=== PATIENT | female | born 1975 | race American Indian/Alaskan Native ===

== ENCOUNTER 2019-11-01 14:27 | Emergency (ER) | payer OTHER, MEDICAID ==
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
== END 2019-11-01 15:00 ==
LOC: EDBD → ED 14:27
DX: I46.9 Cardiac arrest, cause unspecified (principal)